=== PATIENT | male | born 1950 | race American Indian/Alaskan Native ===

== ENCOUNTER 2019-06-25 05:53 | Emergency (ER) | payer MEDICARE ==
[2019-06-25] MEDS ORDERED: MINERAL OIL/PETROLATUM, WHITE OPHTH OINT 3.5 GM OU PRN (06:10)
[2019-06-25] MEDS ORDERED: LIP THERAPY VASELINE TP PRN (06:10)
[2019-06-25] MEDS ORDERED: SUCCINYLCHOLINE CHLORIDE 200 MG/10 ML INJ MDV IV ONE (06:12)
[2019-06-25] MEDS ORDERED: ETOMIDATE 20 MG/10 ML INJ IV ONE ×2 (06:12→14:47)
--- NOTE | 2019-06-25 06:20 | Emergency Department Report ---
ED Shortness of Breath HPI - General Stated Complaint: SHORTNESS OF BREATH Source: patient, EMS Limitations: Other (Severe work of breathing unable to complete sentences) - History of Present Illness Initial Comments: This is a 69-year-old male without significant past medical history who presents with severe shortness of breath. Shortness of breath began approximately 1 week ago. He recently tested positive for COVID 19 infection. He arrived via EMS. Upon EMS arrival paramedics found patient with severe work of breathing. Oxygen saturation 56% on room air. With nonrebreather oxygen saturation improved to 92%. History limited otherwise due to patient's critical status. Other noted symptoms fever cough. According to EMS he had fever 100.6 Tiki POLLARD Complaint: shortness of breath, cough -: Gradual, week(s) (1) Severity: severe Consistency: constant Improves With: nothing Worsens With: nothing Known History Of: other (Recent COVID 19 infection confirmation) Context: recent illness Associated Symptoms: fever, cough - Related Data Allergies Allergy/AdvReac Type Severity Reaction Status Date / Time No Known Allergies Allergy Unverified 06/25/19 06:30 ED Review of Systems ROS: Stated complaint: SHORTNESS OF BREATH Other details as noted in HPI Comment: Unobtainable due to pts medical conditions (Critically ill patient severe work of breathing) ED Past Medical Hx - Past Medical History Previous Medical History?: No - Social History Smoking Status: Never Smoker ED Physical Exam - General General appearance: alert, in distress, other (Severe work of breathing unable to complete more than 2 word sentences) - Head Head exam: Present: atraumatic, normocephalic - Eye Eye exam: Present: normal appearance - ENT ENT exam: Present: mucous membranes moist - Neck Neck exam: Present: normal inspection, full ROM - Respiratory Respiratory exam: Present: respiratory distress, accessory muscle use, decreased breath sounds. Absent: wheezes, rales, rhonchi, prolonged expiratory - Cardiovascular Cardiovascular Exam: Present: normal rhythm, tachycardia, normal heart sounds. Absent: systolic murmur, diastolic murmur, rubs, gallop - GI/Abdominal GI/Abdominal exam: Present: soft. Absent: distended, tenderness, guarding, rebound - Rectal Rectal exam: Present: deferred - Extremities Exam Extremities exam: Present: normal inspection - Back Exam Back exam: Present: normal inspection, full ROM - Neurological Exam Neurological exam: Present: alert, oriented X3 - Psychiatric Psychiatric exam: Present: normal affect, anxious - Skin Skin exam: Present: warm, dry, intact, normal color. Absent: rash ED Course Vital Signs 06/25/19 06/25/19 06/25/19 06:00 06:15 06:45 Temperature 100.5 F H Pulse Rate 141 H 141 H Respiratory 25 H 42 H Rate Blood Pressure 98/24 O2 Sat by Pulse 88 88 98 Oximetry 06/25/19 07:45 Temperature Pulse Rate Respiratory Rate Blood Pressure 107/78 O2 Sat by Pulse 95 Oximetry - Intubation Time Out Performed: Yes Sedative: Etomidate Mg Given: 20 Paralytic: Succinylcholine Mg Given: 150 Laryngoscope: Connor Size: 4 Assist Device Used: fiberoptic device ET Tube Size: 8 Tube Secured Depth (cm): 22 Tube Placement Confirmation: visualized tube passing t, equal breath sounds bilat, no breath sounds over epi Patient Tolerated Procedure: well Intubation Complications: none ED Medical Decision Making - Lab Data Result diagrams: 06/25/19 06:16 06/25/19 06:16 - Medical Decision Making Mr. Polk presents with acute respiratory failure hypoxia Presented in extremis. Oxygen saturation 85% NRB. I intubated patient for inabilty to oxyenate and airway protection with severe work of breathing. My colleague will arrange further treatment, evaluation and disposition. Outpatient COVID 19 testing positive on Thursday. Critical care attestation.: If time is entered above; I have spent that time in minutes in the direct care of this critically ill patient, excluding procedure time. ED Disposition Clinical Impression: Acute respiratory failure with hypoxia, COVID-19 virus infection, Cardiac arrest Disposition: DC-20 Is pt being admited?: No Does the pt Need Aspirin: No Condition: Serious Referrals: PRIMARY CARE, [Primary Care Provider] - 3-5 Days
[2019-06-25] MEDS ORDERED: SODIUM CHLORIDE 0.9% 1000 ML 1,000 ML IV ONE (06:25)
--- NOTE | 2019-06-25 06:28 | Emergency Department Report ---
ED General Adult HPI - General Stated complaint: SHORTNESS OF BREATH Time Seen by Provider: 06/25/19 06:25 Source: patient, EMS Limitations: Other (Severe work of breathing unable to complete sentences) - History of Present Illness Initial comments: This is a 69-year-old male who has come up from [place] known to be Covid 19+. He presented with hypoxia and severe increased work of breathing. He was in tubated by my predecessor Dr. Jonny Lemons. Per her note: This is a 69-year-old male without significant past medical history who presents with severe shortness of breath. Shortness of breath began approximately 1 week ago. He recently tested positive for COVID 19 infection. He arrived via EMS. Upon EMS arrival paramedics found patient with severe work of breathing. Oxygen saturation 56% on room air. With nonrebreather oxygen saturation improved to 92%. History limited otherwise due to patient's critical status. Other noted symptoms fever cough. According to EMS he had fever 100.6 Tiki POLLARD Complaint: shortness of breath, cough -: Gradual, week(s) (1) No further information is available to me at this time regarding his history. I am told that the night nurse had communicated with his . - Related Data Allergies Allergy/AdvReac Type Severity Reaction Status Date / Time No Known Allergies Allergy Unverified 06/25/19 06:30 ED Review of Systems ROS: Stated complaint: SHORTNESS OF BREATH Other details as noted in HPI Comment: Unobtainable due to pts medical conditions ED Past Medical Hx - Past Medical History Previous Medical History?: No - Social History Smoking Status: Never Smoker ED Physical Exam - General Limitations: Other (Severe work of breathing unable to complete sentences) General appearance: obtunded (Obtunded and not on sedation) - Head Head exam: Present: atraumatic - Eye Eye exam: Absent: scleral icterus - ENT ENT exam: Present: other (Some dark brown material per NG tube) - Neck Neck exam: Present: normal inspection - Respiratory Respiratory exam: Present: other (Breath sounds with upper airway sounds on vent there is some fluid in the tube suctioning ordered. There is adequate ventilation and normal pulse oximetry.) - Cardiovascular Cardiovascular Exam: Present: regular rate - GI/Abdominal GI/Abdominal exam: Present: soft. Absent: distended - Extremities Exam Extremities exam: Present: normal inspection - Back Exam Back exam: Present: other (Not visualized) - Neurological Exam Neurological exam: Present: other (Obtunded) - Psychiatric Psychiatric exam: Present: other (inapplicable) ED Course Vital Signs 06/25/19 06/25/19 06/25/19 06:00 06:15 06:45 Temperature 100.5 F H Pulse Rate 141 H 141 H Respiratory 25 H 42 H Rate Blood Pressure 98/24 O2 Sat by Pulse 88 88 98 Oximetry - Reevaluation(s) Reevaluation #1: Nurse called me to the room when the patient's blood pressure dropped. Peep was started at 20 by RT but has been lowered by Dr. Lemons. Propofol is stopped by me. I placed a central line in the left femoral vein without any difficulty, single stick, dark non-pulsatile blood. There was no difficulty. Perhaps about 20 minutes later the nurse called me to the room as the patient suffered a cardiac arrest. He was found to be in asystole. He was given epinephrine and bicarb. After more than 10 minutes resuscitation he had no si gns of life. He had fixed and dilated pupils. He had a few complexes but no return of spontaneous circulation. His Doppler exam was negative. He was pronounced. 06/25/19 08:03 - Central Line Placement Right Femoral Consent Obtained: emergent situation Time Out Performed: No Patient Placed on Monitor/Pulse Ox: Yes Prep: mask, gown, gloves Central Line Prep: Chlorhexidine scrub Local Anesthesia Used: Lidocaine 1% Amount of Anesthesia Used (mls): 5 Ultrasound Used for Placement: No Central Line Lumen Inserted: triple Bloods Obtained for Lab: No Central Line Position: good blood return Dressing Applied: Tegaderm Patient Tolerated Procedure: well Complications: none ED Medical Decision Making - Lab Data Result diagrams: 06/25/19 06:16 06/25/19 06:16 Critical Care Time: Yes Critical care time in (mins) excluding proc time.: 45 Critical care attestation.: If time is entered above; I have spent that time in minutes in the direct care of this critically ill patient, excluding procedure time. ED Disposition Clinical Impression: Acute respiratory failure with hypoxia, COVID-19 virus infection, Cardiac arrest Disposition: DC-20 Is pt being admited?: No Does the pt Need Aspirin: No Condition: Stable Referrals: PRIMARY CARE, [Primary Care Provider] - 3-5 Days Time of Disposition: 08:07
[2019-06-25 06:31] LABS: Hemoglobin 15.6 gm/dl (11.8-15.2); Mean Corpuscular HGB Conc 34 % (32-34); Mean Corpuscular Volume 90 fl (84-94); Red Blood Count 5.11 M/mm3 (3.65-5.03); Red Cell Distribution Width 15.1 % (13.2-15.2)
[2019-06-25] MEDS ORDERED: SODIUM CHLORIDE 0.9% 500 ML 500 ML ONE ×2 (06:31→06:52)
[2019-06-25 06:45] LABS: INR 1.79 (0.87-1.13)
[2019-06-25 06:46] LABS: Partial Thromboplastin Time 57.5 Sec. (24.2-36.6)
[2019-06-25] MEDS ORDERED: NORepinephrine/NS 4 MG-250 ML 4 MG/250 ML BAG IV ONE (06:52)
[2019-06-25 06:53] LABS: ABG Base Excess -6.9 mmol/L (-2.0-3.0); ABG HCO3 15.9 mmol/L (20.0-26.0); ABG Methemoglobin 0.5 % (0.0-1.5); ABG Oxygen Saturation 98.4 % (95.0-99.0); ABG PCO2 26.3 mm Hg; ABG PH 7.401 pH Units (7.350-7.450)
[2019-06-25 06:58] LABS: Albumin 3.3 g/dL (3.9-5); C-Reactive Protein 16.4 mg/dL (0.00-1.30); Calcium 8.3 mg/dL (8.4-10.2)
[2019-06-25] MEDS ORDERED: MIDAZOLAM 5 MG/5 ML INJ MDV IV NR (07:00)
--- NOTE | 2019-06-25 07:04 | XRay Report ---
CHEST 1 VIEW INDICATION / CLINICAL INFORMATION: ETT placement. COMPARISON: 10/31/2015 FINDINGS: SUPPORT DEVICES: The tip of the endotracheal tube is 4 cm above the giuseppe. The nasogastric tube is in the stomach. HEART / MEDIASTINUM: No significant abnormality. LUNGS / PLEURA: Mild hazy opacity is seen in the left lower hemithorax. No pneumothorax. ADDITIONAL FINDINGS: No significant additional findings. IMPRESSION: 1. Mild pleural-parenchymal opacity in the left lower hemithorax. 2. Satisfactory support device positioning. Signer Name: Javier Downs MD Signed: 06/25/2019 7:00 AM Workstation Name: [id number]
[2019-06-25 07:08] LABS: Band Neutrophils # (Manual) 0.2 K/mm3; Basophils % (Manual) 0 % (0.0-1.8); Eosinophils % (Manual) 0 % (0.0-4.3); Total Cells Counted 100
[2019-06-25 07:09] LABS: Schistocytes Rare
[2019-06-25 07:10] LABS: Platelet Estimate Consistent w Auto
[2019-06-25 07:12] LABS: Platelet Count 166 K/mm3 (140-440)
--- NOTE | 2019-06-25 07:54 | History and Physical Report ---
Medications and Allergies Allergies Allergy/AdvReac Type Severity Reaction Status Date / Time No Known Allergies Allergy Unverified 06/25/19 06:30 Active Meds: Active Medications Acetaminophen (Tylenol) 650 mg FEEDTUBE Q6H PRN PRN Reason: Pain MILD(1-3)/Fever >100.5/ALEMAN Dextrose (D50w (25gm) Syringe) 50 ml IV Q30MIN PRN; Protocol PRN Reason: Hypoglycemia Heparin Sodium (Porcine) (Heparin) 5,000 unit SUB-Q Q8HR [facility] Hydrophilic Ointment (Vaseline Lip Therapy) 1 applic TP Q2HR PRN PRN Reason: Dry Lips Hydroxychloroquine Sulfate (Plaquenil) 400 mg PO BID [facility] Stop: 06/25/19 22:01 Hydroxychloroquine Sulfate (Plaquenil) 200 mg PO BID [facility] Stop: 06/29/19 22:01 Propofol (Diprivan 10 Mg/Ml) 1,000 mg in 100 mls @ 2.858 mls/hr IV TITR [facility]HELSE[facility]; Protocol Azithromycin 500 mg/ Sodium (Chloride) 250 mls @ 250 mls/hr IV Q24HR [facility]; Protocol Stop: 06/30/19 08:29 Midazolam HCl (Versed) 5 mg IV ONCE NR Stop: 06/25/19 23:45 Last Admin: 06/25/19 06:11 Dose: 5 mg Documented by: Multi-Ingred Cream/Lotion/Oil/Oint (Artificial Tears Ophth Oint) 1 applic OU Q4HR PRN PRN Reason: Dry Eye(s) Ondansetron HCl (Zofran) 4 mg IV Q4H PRN PRN Reason: Nausea And Vomiting Sodium Chloride (Sodium Chloride Flush Syringe 10 Ml) 10 ml IV BID [facility] Sodium Chloride (Sodium Chloride Flush Syringe 10 Ml) 10 ml IV PRN PRN PRN Reason: LINE FLUSH Zinc Sulfate (Zinc Sulfate) 220 mg PO QDAY [facility] Exam - Constitutional Vitals: Temp Pulse Resp BP Pulse Ox 100.5 F H 141 H 42 H 98/24 98 06/25/19 06:15 06/25/19 06:45 06/25/19 06:15 06/25/19 06:45 06/25/19 06:45 Results - Labs CBC & Chem 7: 06/25/19 06:16 06/25/19 06:16 Labs: Laboratory Last Values WBC 9.8 K/mm3 (4.5-11.0) 06/25/19 06:16 RBC 5.11 M/mm3 (3.65-5.03) H 06/25/19 06:16 Hgb 15.6 gm/dl (11.8-15.2) H 06/25/19 06:16 Hct 46.0 % (35.5-45.6) H 06/25/19 06:16 MCV 90 fl (84-94) 06/25/19 06:16 MCH 31 pg (28-32) 06/25/19 06:16 MCHC 34 % (32-34) 06/25/19 06:16 RDW 15.1 % (13.2-15.2) 06/25/19 06:16 Plt Count 166 K/mm3 (140-440) 06/25/19 06:16 Add Manual Diff Complete 06/25/19 06:16 Total Counted 100 06/25/19 06:16 Seg Neuts % (Manual) 79.0 % (40.0-70.0) H 06/25/19 06:16 Band Neutrophils % 2.0 % 06/25/19 06:16 Lymphocytes % (Manual) 12.0 % (13.4-35.0) L 06/25/19 06:16 Reactive Lymphs % (Man) 0 % 06/25/19 06:16 Monocytes % (Manual) 7.0 % (0.0-7.3) 06/25/19 06:16 Eosinophils % (Manual) 0 % (0.0-4.3) 06/25/19 06:16 Basophils % (Manual) 0 % (0.0-1.8) 06/25/19 06:16 Metamyelocytes % 0 % 06/25/19 06:16 Myelocytes % 0 % 06/25/19 06:16 Promyelocytes % 0 % 06/25/19 06:16 Blast Cells % 0 % 06/25/19 06:16 Nucleated RBC % 1.0 % (0.0-0.9) H 06/25/19 06:16 Seg Neutrophils # Man 7.7 K/mm3 (1.8-7.7) 06/25/19 06:16 Band Neutrophils # 0.2 K/mm3 06/25/19 06:16 Lymphocytes # (Manual) 1.2 K/mm3 (1.2-5.4) 06/25/19 06:16 Abs React Lymphs (Man) 0.0 K/mm3 06/25/19 06:16 Monocytes # (Manual) 0.7 K/mm3 (0.0-0.8) 06/25/19 06:16 Eosinophils # (Manual) 0.0 K/mm3 (0.0-0.4) 06/25/19 06:16 Basophils # (Manual) 0.0 K/mm3 (0.0-0.1) 06/25/19 06:16 Metamyelocytes # 0.0 K/mm3 06/25/19 06:16 Myelocytes # 0.0 K/mm3 06/25/19 06:16 Promyelocytes # 0.0 K/mm3 06/25/19 06:16 Blast Cells # 0.0 K/mm3 06/25/19 06:16 WBC Morphology Not Reportable 06/25/19 06:16 Hypersegmented Neuts Not Reportable 06/25/19 06:16 Hyposegmented Neuts Not Reportable 06/25/19 06:16 Hypogranular Neuts Not Reportable 06/25/19 06:16 Smudge Cells Not Reportable 06/25/19 06:16 Toxic Granulation Not Reportable 06/25/19 06:16 Toxic Vacuolation Not Reportable 06/25/19 06:16 Dohle Bodies Not Reportable 06/25/19 06:16 Pelger-Huet Anomaly Not Reportable 06/25/19 06:16 Wendie Rods Not Reportable 06/25/19 06:16 Platelet Estimate Consistent w auto 06/25/19 06:16 Clumped Platelets Not Reportable 06/25/19 06:16 Plt Clumps, EDTA Not Reportable 06/25/19 06:16 Large Platelets Not Reportable 06/25/19 06:16 Giant Platelets Not Reportable 06/25/19 06:16 Platelet Satelliting Not Reportable 06/25/19 06:16 Plt Morphology Comment Not Reportable 06/25/19 06:16 RBC Morphology Not Reportable 06/25/19 06:16 Dimorphic RBCs Not Reportable 06/25/19 06:16 Polychromasia Not Reportable 06/25/19 06:16 Hypochromasia Not Reportable 06/25/19 06:16 Poikilocytosis Not Reportable 06/25/19 06:16 Anisocytosis Not Reportable 06/25/19 06:16 Microcytosis Not Reportable 06/25/19 06:16 Macrocytosis Not Reportable 06/25/19 06:16 Spherocytes Not Reportable 06/25/19 06:16 Pappenheimer Bodies Not Reportable 06/25/19 06:16 Sickle Cells Not Reportable 06/25/19 06:16 Target Cells Not Reportable 06/25/19 06:16 Tear Drop Cells Not Reportable 06/25/19 06:16 Ovalocytes Not Reportable 06/25/19 06:16 Helmet Cells Not Reportable 06/25/19 06:16 Roy-Goree Bodies Not Reportable 06/25/19 06:16 [place] Rings Not Reportable 06/25/19 06:16 Armando Cells Not Reportable 06/25/19 06:16 Bite Cells Not Reportable 06/25/19 06:16 Crenated Cell Not Reportable 06/25/19 06:16 Elliptocytes Rare 06/25/19 06:16 Acanthocytes (Spur) Not Reportable 06/25/19 06:16 Rouleaux Not Reportable 06/25/19 06:16 Hemoglobin C Crystals Not Reportable 06/25/19 06:16 Schistocytes Rare 06/25/19 06:16 Malaria parasites Not Reportable 06/25/19 06:16 Tom Bodies Not Reportable 06/25/19 06:16 Hem Pathologist Commnt No 06/25/19 06:16 PT 21.1 Sec. (12.2-14.9) H 06/25/19 06:10 INR 1.79 (0.87-1.13) H 06/25/19 06:10 APTT 57.5 Sec. (24.2-36.6) H 06/25/19 06:10 D-Dimer > 12609 ng/mlDDU (0-234) H 06/25/19 06:16 ABG pH 7.401 pH Units (7.350-7.450) 06/25/19 06:43 ABG pCO2 26.3 mm Hg 06/25/19 06:43 ABG pO2 122.0 mm Hg (80.0-90.0) H 06/25/19 06:43 ABG HCO3 15.9 mmol/L (20.0-26.0) L 06/25/19 06:43 ABG O2 Saturation 98.4 % (95.0-99.0) 06/25/19 06:43 ABG O2 Content 21.7 (0.0-44) 06/25/19 06:43 ABG Base Excess -6.9 mmol/L (-2.0-3.0) L 06/25/19 06:43 ABG Hemoglobin 16.0 gm/dl (14.0-18.0) 06/25/19 06:43 ABG Carboxyhemoglobin 1.7 % (0.0-5.0) 06/25/19 06:43 ABG Methemoglobin 0.5 % (0.0-1.5) 06/25/19 06:43 Oxyhemoglobin 96.3 % (95.0-99.0) 06/25/19 06:43 FiO2 100 % 06/25/19 06:43 Sodium 136 mmol/L (137-145) L 06/25/19 06:16 Potassium 4.4 mmol/L (3.6-5.0) 06/25/19 06:16 Chloride 97.8 mmol/L (98-107) L 06/25/19 06:16 Carbon Dioxide 14 mmol/L (22-30) L 06/25/19 06:16 Anion Gap 29 mmol/L 06/25/19 06:16 BUN 27 mg/dL (9-20) H 06/25/19 06:16 Creatinine 2.2 mg/dL (0.8-1.5) H 06/25/19 06:16 Estimated GFR 36 ml/min 06/25/19 06:16 BUN/Creatinine Ratio 12 % 06/25/19 06:16 Glucose 168 mg/dL (75-100) H 06/25/19 06:16 Lactic Acid 7.20 mmol/L (0.7-2.0) H* 06/25/19 06:16 Calcium 8.3 mg/dL (8.4-10.2) L 06/25/19 06:16 Magnesium 2.20 mg/dL (1.7-2.3) 06/25/19 06:10 Total Bilirubin 1.40 mg/dL (0.1-1.2) H 06/25/19 06:16 AST 145 units/L (5-40) H 06/25/19 06:16 ALT 42 units/L (7-56) 06/25/19 06:16 Alkaline Phosphatase 88 units/L (35-129) 06/25/19 06:16 Lactate Dehydrogenase 1444 units/L (91-180) H 06/25/19 06:16 Troponin T 0.541 ng/mL (0.00-0.029) H* 06/25/19 06:16 C-Reactive Protein 16.40 mg/dL (0.00-1.30) H 06/25/19 06:16 NT-Pro-B Natriuret Pep 2276 pg/mL (0-900) H 06/25/19 06:10 Total Protein 7.8 g/dL (6.3-8.2) 06/25/19 06:16 Albumin 3.3 g/dL (3.9-5) L 06/25/19 06:16 Albumin/Globulin Ratio 0.7 % 06/25/19 06:16 Triglycerides 145 mg/dL (2-149) 06/25/19 06:16 Cholesterol 152 mg/dL (50-199) 06/25/19 06:16 LDL Cholesterol Direct 111 mg/dL (50-130) 06/25/19 06:16 Collins/IV: IV Catheter Type [Left Forearm INT / Saline Lock ] IV Catheter Type [Left Hand] INT / Saline Lock
[2019-06-25] MEDS ORDERED: EPINEPHrine 1:10,000 1 MG/10 ML SYRINGE ONE (07:55)
[2019-06-25] MEDS ORDERED: SODIUM BICARB 8.4% 50 MEQ/50 ML SYRINGE IV ONE (07:55)
[2019-06-25] MEDS ORDERED: ONDANSETRON 4 MG/2 ML INJ IV PRN (08:00)
[2019-06-25] MEDS ORDERED: HEPARIN 5,000 UNIT/1 ML VIAL SUB-Q SCH (08:00)
[2019-06-25] MEDS ORDERED: ACETAMINOPHEN 325 MG/10.15 ML ORAL LIQD UNIT DOSE FEEDTUBE PRN (08:00)
[2019-06-25] MEDS ORDERED: DEXTROSE 50% IN WATER (25GM) 50 ML SYRINGE IV PRN (08:00)
--- NOTE | 2019-06-25 08:04 | Event Note ---
Date: 06/25/19 Patient just before I could see him.
[2019-06-25 08:21] LABS: Chol/HDL Ratio 5.84 %
[2019-06-25 08:30] LABS: Amorphous Crystals,Urine Few; Bilirubin,Urine NEG (Negative); Blood,Urine LG (Negative); Color,Urine Amber (Yellow); Granular Casts,Urine 2 /LPF; Urobilinogen,Urine < 2.0 mg/dL (<2.0)
[2019-06-25] MEDS ORDERED: AZITHROMYCIN 500 MG in SODIUM CHLORIDE 0.9% 250ML 250 ML IV SCH (08:30)
[2019-06-25 08:37] LABS: Protein,Urine >500 mg/dL (Negative)
[2019-06-25] MEDS ORDERED: HYDROXYCHLOROQUINE 200 MG TAB PO SCH ×2 (10:00)
[2019-06-25] MEDS ORDERED: FAMOTIDINE 20 MG/2 ML INJ IV SCH (10:00)
[2019-06-25] MEDS ORDERED: ZINC SULFATE 220 MG CAP PO SCH (10:00)
[2019-06-25 10:42] VITALS: BP 107/78
[2019-06-25] MEDS ORDERED: MIDAZOLAM 5 MG/5 ML INJ MDV IV ONE (14:47)
[2019-06-25] MEDS ORDERED: SUCCINYLCHOLINE CHLORIDE 200 MG/10 ML INJ MDV ONE (14:47)
[2019-06-26] MEDS ORDERED: HYDROXYCHLOROQUINE 200 MG TAB PO SCH (10:00)
== END 2019-06-25 10:36 ==
LOC: ED 05:53
DX: U07.1 COVID-19 (principal); J96.01 Acute respiratory failure with hypoxia
CPT/HCPCS: 31500; 36415; 36556; 71045; 80053; 80061; 81001; 82140; 82728; 82803; 83615; 83735; 83880; 84484; 85007; 85025; 85379; 85610; 85730; 86140; 87040; 87070; 87086; 87205; 92950; 99291; J0171; J0330; J2250; J2704; J7040; 94002; J0456; J7050